=== PATIENT | female | born 1945 | race African-American/Black ===

== ENCOUNTER 2016-08-28 20:23 | Inpatient (IN) | payer OTHER ==
[~2016-08-28] VITALS: Ht 162.6 cm; Wt 101.1 kg
[~2016-08-28 20:23] MED LIST: ACTONEL150 MG PO; CALCIUM CITRAT1 EAC9 PO; CALTRATE 6001 TABLE1 PO; CELEBREX200 MG PO; DULCOLAX STOOL100 MG PO; Ecotrin PO; FEOSOL325 MG PO; Feosol PO; HAIR, SKIN & N1 EAC1 PO; HYDROCODON-ACE1 EAC7 PO; IRON325 M1 PO; KLOR-CON 1010 ME1 PO; LANSOPRAZOLE30 MG PO; LASIX40 MG PO; LOTREL 10/21 CAPSULE PO; MENOPAUSE SUPPO20 MG PO; MICRO-K,K-DUR,10 ME1 PO; MOBIC7.5 MG PO; OYSCO 500+D TA1 EACH PO; Prevacid PO; SENOKOT S,PE1 TABLET PO; SUPER B COMPLE150 MG PO; THERAGRAN1 TABLET PO; TOPROL XL50 MG PO; TRAMADOL HCL50 MG PO; VICODIN,LORT1 TABLET PO; Vicodin,Lortab 5/500 PO; Vitamin B-12 PO; [UNRECOGNIZED DRUG - OTHER] PO; celeBREX PO
[2016-08-28 21:12] LABS: HEMATOCRIT 40.2 % (36.0-46.0); MCH 29.1 PG (29.0-34.0); MCHC 31.1 G/DL (30.0-36.0); MCV 93.7 FL (83-99); MEAN PLAT.VOLUME 10.3 uM^3 (9.5-12.4); PLATELET COUNT 176 K/uL (156-360); RBC DIS.WIDTH-CV 12.5 % (11.8-14.6); RBC DIS.WIDTH-SD 42.9 % (39-53); RED BLOOD COUNT 4.29 M/uL (3.80-5.20); WHITE BLOOD COUNT 10.1 K/uL (4.1-10.2)
[2016-08-28 21:20] LABS: CHLORIDE 107 mEq/L (99-109); POTASSIUM 3.1 mEq/L (3.7-5.4); SODIUM 142 mEq/L (136-147)
[2016-08-28 21:23] LABS: GLUCOSE 174 mg/dL (70-99)
[2016-08-28 21:24] LABS: ANION GAP 15 MEQ/L (2-14)
[2016-08-28 21:25] LABS: TOTAL BILIRUBIN 0.5 mg/dL (0.0-1.0)
[2016-08-28 21:26] LABS: ALKALINE PHOSPHATASE 71 IU/L (3-129); GFR ESTIMATE (CALCULATED) > 59 mL/min/
[2016-08-28 21:27] LABS: UREA NITROGEN (BUN) 12 mg/dL (9-23)
[2016-08-28 21:33] LABS: TROP-I INTERPRETATION NEGATIVE; TROPONIN-I < 0.01 ng/mL (0.0-0.30)
[2016-08-28 23:28] LABS: ADD MIUA? NO; BILIRUBIN NEGATIVE; BLOOD NEGATIVE; COLOR YELLOW ((YELLOW)); GLUCOSE (STRIP) NEGATIVE; KETONES 5; LEUKOCYTES NEGATIVE; NITRITE NEGATIVE; PROTEIN (STRIP) NEGATIVE; SPECIFIC GRAVITY 1.019 (1.000-1.030); UCUL ADDED? NO; UROBILINOGEN 0.2 MG/DL (0.2-1.0)
[2016-08-29] MEDS ORDERED: SUPER B COMP1 TABLET PO (00:58)
[2016-08-29] MEDS ORDERED: FISH OIL 1,0001 EAC8 PO (00:59)
[2016-08-29] MEDS ORDERED: FERROUS SULFAT325 MG PO (01:00)
[2016-08-29] MEDS ORDERED: BIOTIN 5000MCG PO (01:01)
[2016-08-29] MEDS ORDERED: LOTREL 10/41 CAPSULE PO (01:02)
[2016-08-29] MEDS ORDERED: ACETAMINOPHEN325 M1 PO (01:04)
[2016-08-29] MEDS ORDERED: CALCIUM 600 +1 EA12 PO (01:06)
[2016-08-29 02:30] VITALS: BP 124/74
[2016-08-29 07:15] LABS: HEMATOCRIT 37.7 % (36.0-46.0); MCH 28.8 PG (29.0-34.0); MCHC 30.2 G/DL (30.0-36.0); MCV 95.2 FL (83-99); MEAN PLAT.VOLUME 10.6 uM^3 (9.5-12.4); PLATELET COUNT 169 K/uL (156-360); RBC DIS.WIDTH-CV 12.5 % (11.8-14.6); RBC DIS.WIDTH-SD 43.7 % (39-53); RED BLOOD COUNT 3.96 M/uL (3.80-5.20); WHITE BLOOD COUNT 8.5 K/uL (4.1-10.2)
[2016-08-29 07:40] LABS: ANION GAP 9 MEQ/L (2-14); CHLORIDE 107 MEQ/L (99-109); GFR ESTIMATE (CALCULATED) > 59 mL/min/; GLUCOSE 138 mg/dL (70-99); SAMPLE HEMOLYSIS CHECK 0; SAMPLE ICTERIC CHECK 0; SAMPLE LIPEMIA CHECK 0; SODIUM 145 MEQ/L (136-147); UREA NITROGEN (BUN) 10 mg/dL (9-23)
[2016-08-29 07:46] LABS: POTASSIUM 4.1 MEQ/L (3.7-5.4)
[2016-08-29 08:00] VITALS: BP 106/54
[2016-08-29 11:55] VITALS: BP 126/70
[2016-08-29 16:12] VITALS: BP 134/88
[2016-08-29 19:55] VITALS: BP 132/74
[2016-08-29 23:26] VITALS: BP 137/78
[2016-08-30 03:31] VITALS: BP 132/77
[2016-08-30 07:22] LABS: ANION GAP 7 MEQ/L (2-14); CHLORIDE 108 MEQ/L (99-109); GFR ESTIMATE (CALCULATED) > 59 mL/min/; GLUCOSE 108 mg/dL (70-99); POTASSIUM 3.8 MEQ/L (3.7-5.4); SAMPLE HEMOLYSIS CHECK 0; SAMPLE ICTERIC CHECK 0; SAMPLE LIPEMIA CHECK 0; SODIUM 141 MEQ/L (136-147); UREA NITROGEN (BUN) 7 mg/dL (9-23)
[2016-08-30 08:00] VITALS: BP 129/75
[2016-08-30 23:28] VITALS: BP 129/71
[2016-08-31 07:00] LABS: EOSINOPHIL (%) 1.4 % (0-5); EOSINOPHIL COUNT 0.1 K/uL (0-0.3); HEMATOCRIT 39.6 % (36.0-46.0); IMMATURE GRANULOCYTE (%) 0.3 % (0.0-0.7); INSTRUMENT ABS NEUTROPHIL CT 6.6 K/uL; LYMPHOCYTE COUNT 2.1 K/uL (1.0-2.8); MCH 29.3 PG (29.0-34.0); MCHC 31.6 G/DL (30.0-36.0); MCV 92.7 FL (83-99); MEAN PLAT.VOLUME 10.6 uM^3 (9.5-12.4); MONOCYTE (%) 5.9 % (3-12); MONOCYTE COUNT 0.6 K/uL (0-0.8); NEUTROPHIL (%) 70.1 % (45-76); NEUTROPHIL COUNT 6.6 K/uL (1.8-6.4); PLATELET COUNT 181 K/uL (156-360); RBC DIS.WIDTH-CV 12.6 % (11.8-14.6); RBC DIS.WIDTH-SD 42.9 % (39-53); RED BLOOD COUNT 4.27 M/uL (3.80-5.20); WHITE BLOOD COUNT 9.5 K/uL (4.1-10.2)
[2016-08-31 07:20] LABS: ANION GAP 8 MEQ/L (2-14); CHLORIDE 106 MEQ/L (99-109); GFR ESTIMATE (CALCULATED) > 59 mL/min/; GLUCOSE 111 mg/dL (70-99); POTASSIUM 3.7 MEQ/L (3.7-5.4); SAMPLE HEMOLYSIS CHECK 0; SAMPLE ICTERIC CHECK 0; SAMPLE LIPEMIA CHECK 0; SODIUM 142 MEQ/L (136-147); UREA NITROGEN (BUN) 5 mg/dL (9-23)
[2016-08-31 07:24] VITALS: BP 118/86
[2016-08-31 10:30] VITALS: BP 128/84
[2016-08-31] MEDS ORDERED: METRONIDAZOLE500 MG PO (12:53)
[2016-08-31 13:50] VITALS: BP 118/78
== END 2016-08-31 13:53 | disposition home health service (06) | DRG 392 ==
LOC: EME → EDBD 20:23 → EME 20:23 → EDOF 08-29 00:45 → 2EAST 08-29 00:45
PROVIDERS: Emergency Medicine; Family Medicine
DX: K52.9 Noninfective gastroenteritis and colitis, unspecified (principal); R42 Dizziness and giddiness; I95.9 Hypotension, unspecified; E87.70 Fluid overload, unspecified; I11.0 Hypertensive heart disease with heart failure; I50.9 Heart failure, unspecified; I48.91 Unspecified atrial fibrillation; J45.909 Unspecified asthma, uncomplicated; G89.29 Other chronic pain; M54.9 Dorsalgia, unspecified; K21.9 Gastro-esophageal reflux disease without esophagitis; F41.9 Anxiety disorder, unspecified; F32.9 Major depressive disorder, single episode, unspecified; E66.9 Obesity, unspecified; Z96.653 Presence of artificial knee joint, bilateral; Z96.643 Presence of artificial hip joint, bilateral; Z68.38 Body mass index [BMI] 38.0-38.9, adult
CPT/HCPCS: 70450; 74177; 80048; 80053; 81003; 84484; 85025; 85027; 87506; 93005; 99281; 99285; C9113; J0744; J0780; J1650; J1940; J2405; J2765; J3010; J7040; S0030

== ENCOUNTER 2016-11-03 11:04 | Emergency (ER) | payer OTHER ==
[~2016-11-03] VITALS: Ht 157.5 cm; Wt 100.1 kg
[~2016-11-03 11:04] MED LIST changes: +ACETAMINOPHEN325 M1 PO; +BIOTIN 5000MCG PO; +CALCIUM 600 +1 EA12 PO; +FERROUS SULFAT325 MG PO; +FISH OIL 1,0001 EAC8 PO; +LOTREL 10/41 CAPSULE PO; +METRONIDAZOLE500 MG PO; +SUPER B COMP1 TABLET PO
[2016-11-03 12:54] LABS: HEMATOCRIT 35.5 % (36.0-46.0); MCH 29.8 PG (29.0-34.0); MCHC 32.1 G/DL (30.0-36.0); MCV 92.9 FL (83-99); MEAN PLAT.VOLUME 11.5 uM^3 (9.5-12.4); PLATELET COUNT 138 K/uL (156-360); RBC DIS.WIDTH-CV 13.9 % (11.8-14.6); RED BLOOD COUNT 3.82 M/uL (3.80-5.20)
[2016-11-03 13:03] LABS: INTER. NORMALIZED RATIO 1.2; PROTHROMBIN TIME 11.9 (9.2-11.2)
[2016-11-03 13:04] LABS: CHLORIDE 109 mEq/L (99-109); POTASSIUM 3.4 mEq/L (3.7-5.4); SODIUM 143 mEq/L (136-147)
[2016-11-03 13:05] LABS: GLUCOSE 90 mg/dL (70-99)
[2016-11-03 13:07] LABS: ANION GAP 9 MEQ/L (2-14)
[2016-11-03 13:09] LABS: GFR ESTIMATE (CALCULATED) > 59 mL/min/
[2016-11-03 13:10] LABS: UREA NITROGEN (BUN) 14 mg/dL (9-23)
[2016-11-03 13:14] LABS: TROP-I INTERPRETATION NEGATIVE; TROPONIN-I 0.01 ng/mL (0.0-0.30)
[2016-11-03 14:35] VITALS: BP 111/82
== END 2016-11-03 14:45 | disposition home or self-care (01) ==
LOC: EME 11:04
PROVIDERS: Emergency Medicine
DX: I50.9 Heart failure, unspecified (principal); M79.604 Pain in right leg; M79.605 Pain in left leg; I48.91 Unspecified atrial fibrillation; I10 Essential (primary) hypertension
CPT/HCPCS: 71010; 80048; 83880; 84484; 85027; 85610; 93005; 99281; 99284

== ENCOUNTER 2017-02-12 07:55 | Day surgery (SDC) | payer OTHER ==
[~2017-02-12] VITALS: Ht 161.3 cm; Wt 98.0 kg
[~2017-02-12 07:55] MED LIST changes: +METOPROLOL SUCC50 MG PO; +WOMEN'S 50 PLU1 EACH PO
[2017-02-12] MEDS ORDERED: ASPIRIN81 M2 PO (09:08)
== END 2017-02-12 15:25 | disposition home or self-care (01) ==
LOC: CATH 07:55
DX: I34.0 Nonrheumatic mitral (valve) insufficiency (principal); I42.9 Cardiomyopathy, unspecified; G47.30 Sleep apnea, unspecified; E66.9 Obesity, unspecified; Z68.39 Body mass index [BMI] 39.0-39.9, adult; I11.0 Hypertensive heart disease with heart failure; I50.9 Heart failure, unspecified; I48.1 Persistent atrial fibrillation; I27.2 Other secondary pulmonary hypertension; Z82.49 Family history of ischemic heart disease and other diseases of the circulatory system
CPT/HCPCS: 93005; C1769; C1887; J1644; J2250; J3010

== ENCOUNTER 2017-05-14 16:48 | Inpatient (IN) | payer OTHER ==
[~2017-05-14] VITALS: Ht 160 cm; Wt 98.1 kg
[~2017-05-14 16:48] MED LIST changes: +ASPIRIN81 M2 PO; +ENTRESTO 24 MG1 EACH PO; +ENTRESTO 49 MG1 EACH PO; +FUROSEMIDE40 MG PO; +K-DUR20 MEQ PO; +TOPROL XL25 MG PO
[2017-05-14 17:29] LABS: HEMATOCRIT 40.3 % (36.0-46.0); MCH 31.9 PG (29.0-34.0); MCV 93.9 FL (83-99); MEAN PLAT.VOLUME 13.4 uM^3 (9.5-12.4); NRBC (%) 0.6 /100 WBC (0-0); PLATELET COUNT 109 K/uL (156-360); RBC DIS.WIDTH-CV 16.6 % (11.8-14.6); RBC DIS.WIDTH-SD 55.9 % (39-53); RED BLOOD COUNT 4.29 M/uL (3.80-5.20); WHITE BLOOD COUNT 6.6 K/uL (4.1-10.2)
[2017-05-14 17:42] LABS: CHLORIDE 108 mEq/L (99-109); POTASSIUM 4.5 mEq/L (3.7-5.4); SODIUM 140 mEq/L (136-147)
[2017-05-14 17:44] LABS: GLUCOSE 121 mg/dL (70-99)
[2017-05-14 17:45] LABS: ANION GAP 10 MEQ/L (2-14)
[2017-05-14 17:48] LABS: GFR ESTIMATE (CALCULATED) 47 mL/min/
[2017-05-14 17:49] LABS: UREA NITROGEN (BUN) 20 mg/dL (9-23)
[2017-05-14 18:09] LABS: TOTAL BILIRUBIN 1.3 mg/dL (0.0-1.0)
[2017-05-14 18:10] LABS: ALKALINE PHOSPHATASE 66 IU/L (3-129)
[2017-05-14 18:12] LABS: DIRECT BILIRUBIN 0.7 mg/dL (0.0-0.3)
[2017-05-14 19:16] LABS: TROP-I INTERPRETATION NEGATIVE; TROPONIN-I < 0.01 ng/mL (0.0-0.30)
[2017-05-14] MEDS ORDERED: IRON325 M1 PO (19:20)
[2017-05-14] MEDS ORDERED: LASIX40 MG PO (19:21)
[2017-05-14] MEDS ORDERED: ENTRESTO 24 MG1 EACH PO (19:22)
[2017-05-14] MEDS ORDERED: K-DUR20 MEQ PO (19:23)
[2017-05-14] MEDS ORDERED: TOPROL XL50 MG PO (19:23)
[2017-05-14] MEDS ORDERED: DULCOLAX5 MG PO (19:26)
[2017-05-14] MEDS ORDERED: SUPER CALCIUM600 MG PO (19:27)
[2017-05-14 21:00] VITALS: BP 128/90
[2017-05-14 21:05] VITALS: BP 128/90
[2017-05-14 23:40] VITALS: BP 123/77
[2017-05-15 03:44] VITALS: BP 118/95
[2017-05-15 07:11] LABS: EOSINOPHIL (%) 1.3 % (0-5); EOSINOPHIL COUNT 0.1 K/uL (0-0.3); HEMATOCRIT 38.9 % (36.0-46.0); IMMATURE GRANULOCYTE (%) 0.2 % (0.0-0.7); INSTRUMENT ABS NEUTROPHIL CT 3.2 K/uL; LYMPHOCYTE COUNT 2.4 K/uL (1.0-2.8); MCH 30.5 PG (29.0-34.0); MCHC 32.6 G/DL (30.0-36.0); MCV 93.5 FL (83-99); MEAN PLAT.VOLUME 12.9 uM^3 (9.5-12.4); MONOCYTE (%) 8.8 % (3-12); MONOCYTE COUNT 0.6 K/uL (0-0.8); NEUTROPHIL COUNT 3.2 K/uL (1.8-6.4); NRBC (%) 0.3 /100 WBC (0-0); PLATELET COUNT 101 K/uL (156-360); RBC DIS.WIDTH-CV 16.3 % (11.8-14.6); RBC DIS.WIDTH-SD 54.4 % (39-53); RED BLOOD COUNT 4.16 M/uL (3.80-5.20); WHITE BLOOD COUNT 6.2 K/uL (4.1-10.2)
[2017-05-15 07:43] LABS: ANION GAP 12 MEQ/L (2-14); CHLORIDE 107 MEQ/L (99-109); GFR ESTIMATE (CALCULATED) 44 mL/min/; POTASSIUM 4.3 MEQ/L (3.7-5.4); SAMPLE HEMOLYSIS CHECK 0; SAMPLE ICTERIC CHECK 0; SAMPLE LIPEMIA CHECK 0; SODIUM 142 MEQ/L (136-147); UREA NITROGEN (BUN) 22 mg/dL (9-23)
[2017-05-15 07:44] VITALS: BP 119/84
[2017-05-15 07:52] LABS: GLUCOSE 86 mg/dL (70-99)
[2017-05-15 11:53] VITALS: BP 136/88
[2017-05-15 16:17] VITALS: BP 108/77
[2017-05-15 20:16] VITALS: BP 121/97
[2017-05-15 23:58] VITALS: BP 118/78
[2017-05-16 03:58] VITALS: BP 115/77
[2017-05-16 07:28] LABS: EOSINOPHIL (%) 1.3 % (0-5); EOSINOPHIL COUNT 0.1 K/uL (0-0.3); HEMATOCRIT 37.7 % (36.0-46.0); IMMATURE GRANULOCYTE (%) 0.4 % (0.0-0.7); INSTRUMENT ABS NEUTROPHIL CT 2.4 K/uL; LYMPHOCYTE COUNT 2.6 K/uL (1.0-2.8); MCH 31.8 PG (29.0-34.0); MCV 93.5 FL (83-99); MEAN PLAT.VOLUME 13.4 uM^3 (9.5-12.4); MONOCYTE (%) 9.5 % (3-12); MONOCYTE COUNT 0.5 K/uL (0-0.8); NEUTROPHIL (%) 42.2 % (45-76); NEUTROPHIL COUNT 2.4 K/uL (1.8-6.4); NRBC (%) 0.7 /100 WBC (0-0); PLATELET COUNT 95 K/uL (156-360); RBC DIS.WIDTH-CV 16.4 % (11.8-14.6); RBC DIS.WIDTH-SD 54.9 % (39-53); RED BLOOD COUNT 4.03 M/uL (3.80-5.20); WHITE BLOOD COUNT 5.6 K/uL (4.1-10.2)
[2017-05-16 07:37] VITALS: BP 115/77
[2017-05-16 08:02] LABS: ANION GAP 11 MEQ/L (2-14); CHLORIDE 110 MEQ/L (99-109); GFR ESTIMATE (CALCULATED) 44 mL/min/; GLUCOSE 95 mg/dL (70-99); POTASSIUM 4.1 MEQ/L (3.7-5.4); SAMPLE HEMOLYSIS CHECK 0; SAMPLE ICTERIC CHECK 0; SAMPLE LIPEMIA CHECK 0; SODIUM 144 MEQ/L (136-147); UREA NITROGEN (BUN) 22 mg/dL (9-23)
[2017-05-16] MEDS ORDERED: METOPROLOL SUC100 MG PO (09:24)
[2017-05-16 11:34] VITALS: BP 130/90
== END 2017-05-16 15:02 | disposition home or self-care (01) | DRG 292 ==
LOC: EME 16:48 → 3EAST 19:29 → EDOF 19:29 → ENRESERV 19:48 → 3EAST 20:40
PROVIDERS: Emergency Medicine; Family Medicine
DX: I11.0 Hypertensive heart disease with heart failure (principal); I50.43 Acute on chronic combined systolic (congestive) and diastolic (congestive) heart failure; I48.1 Persistent atrial fibrillation; I08.1 Rheumatic disorders of both mitral and tricuspid valves; I27.20 Pulmonary hypertension, unspecified; D69.6 Thrombocytopenia, unspecified; N28.9 Disorder of kidney and ureter, unspecified; E66.01 Morbid (severe) obesity due to excess calories; Z68.38 Body mass index [BMI] 38.0-38.9, adult; I48.2 Chronic atrial fibrillation; J45.909 Unspecified asthma, uncomplicated; I42.0 Dilated cardiomyopathy; K21.9 Gastro-esophageal reflux disease without esophagitis; M19.90 Unspecified osteoarthritis, unspecified site; F41.9 Anxiety disorder, unspecified; F32.9 Major depressive disorder, single episode, unspecified; Z96.653 Presence of artificial knee joint, bilateral; Z96.643 Presence of artificial hip joint, bilateral; Z82.0 Family history of epilepsy and other diseases of the nervous system
CPT/HCPCS: 71020; 80048; 80076; 83880; 84484; 85025; 85027; 93005; 99281; 99285; J1940

== ENCOUNTER 2017-09-29 13:52 | Observation (INO) | payer OTHER ==
[~2017-09-29] VITALS: Ht 162.6 cm; Wt 99.6 kg
[~2017-09-29 13:52] MED LIST changes: +DULCOLAX5 MG PO; +METOPROLOL SUC100 MG PO; +SUPER CALCIUM600 MG PO
[2017-09-29 14:13] LABS: HEMATOCRIT 35.8 % (36.0-46.0); HEMOGLOBIN 11.7 G/DL (11.9-15.5); MCH 31.7 PG (29.0-34.0); MCHC 32.7 G/DL (30.0-36.0); PLATELET COUNT 68 K/uL (156-360); RBC DIS.WIDTH-CV 14.8 % (11.8-14.6); RBC DIS.WIDTH-SD 52.2 % (39-53); RED BLOOD COUNT 3.69 M/uL (3.80-5.20); WHITE BLOOD COUNT 5.4 K/uL (4.1-10.2)
[2017-09-29 14:22] LABS: CHLORIDE 110 mEq/L (99-109); POTASSIUM 4.1 mEq/L (3.7-5.4); SODIUM 142 mEq/L (136-147)
[2017-09-29 14:24] LABS: GLUCOSE 94 mg/dL (70-99)
[2017-09-29 14:27] LABS: CREATININE 1.6 mg/dL (0.6-1.3); GFR ESTIMATE (CALCULATED) 41 mL/min/
[2017-09-29 14:28] LABS: UREA NITROGEN (BUN) 28 mg/dL (9-23)
[2017-09-29] MEDS ORDERED: ENTRESTO 24 MG1 EACH PO (14:55)
[2017-09-29] MEDS ORDERED: TYLENOL REGULA325 MG PO (14:56)
[2017-09-29] MEDS ORDERED: CALCIUM600 M1 PO (14:57)
[2017-09-29] MEDS ORDERED: TORSEMIDE100 MG PO ×3 (14:58→16:54)
[2017-09-29 20:00] VITALS: BP 120/64
[2017-09-29 23:45] VITALS: BP 107/72
[2017-09-30] VITALS (8 sets, daily range): BP systolic 85–123; BP diastolic 56–74
[2017-09-30 07:04] LABS: CHLORIDE 110 MEQ/L (99-109); CREATININE 1.4 MG/DL (0.6-1.3); GFR ESTIMATE (CALCULATED) 47 mL/min/; GLUCOSE 90 mg/dL (70-99); POTASSIUM 3.7 MEQ/L (3.7-5.4); SODIUM 142 MEQ/L (136-147); UREA NITROGEN (BUN) 28 mg/dL (9-23)
[2017-10-01] VITALS (7 sets, daily range): BP systolic 98–109; BP diastolic 65–73
[2017-10-01 06:32] LABS: BASOPHIL (%) 0.4 % (0-1); EOSINOPHIL (%) 2.1 % (0-5); EOSINOPHIL COUNT 0.1 K/uL (0-0.3); HEMATOCRIT 33.4 % (36.0-46.0); HEMOGLOBIN 11.2 G/DL (11.9-15.5); IMMATURE GRANULOCYTE (%) 0.2 % (0.0-0.7); LYMPHOCYTE (%) 35.4 % (15-42); LYMPHOCYTE COUNT 1.9 K/uL (1.0-2.8); MCH 31.5 PG (29.0-34.0); MCHC 33.5 G/DL (30.0-36.0); MCV 94.1 FL (83-99); MONOCYTE (%) 9.9 % (3-12); MONOCYTE COUNT 0.5 K/uL (0-0.8); NEUTROPHIL COUNT 2.7 K/uL (1.8-6.4); PLATELET COUNT 67 K/uL (156-360); RBC DIS.WIDTH-CV 14.4 % (11.8-14.6); RBC DIS.WIDTH-SD 49.5 % (39-53); RED BLOOD COUNT 3.55 M/uL (3.80-5.20); WHITE BLOOD COUNT 5.3 K/uL (4.1-10.2)
[2017-10-01 07:08] LABS: CHLORIDE 110 MEQ/L (99-109); CREATININE 1.6 MG/DL (0.6-1.3); GFR ESTIMATE (CALCULATED) 41 mL/min/; GLUCOSE 102 mg/dL (70-99); POTASSIUM 3.6 MEQ/L (3.7-5.4); SODIUM 144 MEQ/L (136-147); UREA NITROGEN (BUN) 30 mg/dL (9-23)
[2017-10-02 03:58] VITALS: BP 109/68
[2017-10-02 06:58] LABS: CHLORIDE 108 MEQ/L (99-109); CREATININE 1.5 MG/DL (0.6-1.3); GFR ESTIMATE (CALCULATED) 44 mL/min/; GLUCOSE 91 mg/dL (70-99); POTASSIUM 3.5 MEQ/L (3.7-5.4); SODIUM 144 MEQ/L (136-147); UREA NITROGEN (BUN) 30 mg/dL (9-23)
[2017-10-02 07:58] VITALS: BP 99/62
== END 2017-10-02 16:27 | disposition home or self-care (01) ==
LOC: EME 13:52 → 2EAST 17:35 → EDOF 17:35 → 2EAST 17:35 → ENRESERV 17:55 → 2EAST 19:43 → EDPENDDIS 10-02 16:00 → ENPENDDIS 10-02 16:00 → 2EAST 10-02 16:27
PROVIDERS: Family Medicine; Internal Medicine Cardiovascular Disease
DX: I13.0 Hypertensive heart and chronic kidney disease with heart failure and stage 1 through stage 4 chronic kidney disease, or unspecified chronic kidney disease (principal); I50.23 Acute on chronic systolic (congestive) heart failure; N18.9 Chronic kidney disease, unspecified; E87.6 Hypokalemia; I27.20 Pulmonary hypertension, unspecified; I08.1 Rheumatic disorders of both mitral and tricuspid valves; I48.1 Persistent atrial fibrillation; J45.909 Unspecified asthma, uncomplicated; M19.90 Unspecified osteoarthritis, unspecified site; R60.0 Localized edema; I89.0 Lymphedema, not elsewhere classified; Z79.01 Long term (current) use of anticoagulants; Z87.19 Personal history of other diseases of the digestive system; D69.6 Thrombocytopenia, unspecified; K21.9 Gastro-esophageal reflux disease without esophagitis; F41.9 Anxiety disorder, unspecified; F32.9 Major depressive disorder, single episode, unspecified; G89.29 Other chronic pain; M54.9 Dorsalgia, unspecified; Z96.653 Presence of artificial knee joint, bilateral; Z96.643 Presence of artificial hip joint, bilateral; Z82.49 Family history of ischemic heart disease and other diseases of the circulatory system; Z82.0 Family history of epilepsy and other diseases of the nervous system; Z88.5 Allergy status to narcotic agent; Z91.048 Other nonmedicinal substance allergy status
CPT/HCPCS: 71046; 80048; 85025; 85027; 99281; 99285; G0378; J1940